=== PATIENT | female | born 1985 | race Two or more races ===

== ENCOUNTER 2023-04-04 10:33 | Emergency (ER) | payer BC ==
[~2023-04-04] VITALS: Ht 162.6 cm; Wt 58.5 kg
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
[2023-04-04] MEDS ORDERED: ONDANSETRON 4 MG TAB.RAPDIS PO ONE (11:30)
[2023-04-04] MEDS ORDERED: ONDANSETRON 4 MG TAB.RAPDIS ONE (11:32)
[2023-04-04 12:19] VITALS: BP 99/58
== END 2023-04-04 12:19 | disposition home or self-care (01) ==
LOC: ER 10:58
DX: F12.120 Cannabis abuse with intoxication, uncomplicated (principal)
CPT/HCPCS: 99283; 84703; 80307; Q0162